=== PATIENT | female | born 1970 | race Caucasian/White ===

== ENCOUNTER 2016-11-05 08:54 | Outpatient (CLI) | payer MEDICAID | END 2016-11-05 08:55 | disposition home or self-care (01) | DX: E88.81 Metabolic syndrome and other insulin resistance (principal); I10 Essential (primary) hypertension; E66.9 Obesity, unspecified; E78.5 Hyperlipidemia, unspecified ==

== ENCOUNTER 2017-03-21 07:17 | Emergency (ER) | payer MEDICAID ==
[2017-03-21] MEDS ORDERED: SODIUM CHLORIDE 0.9% 1,000 ML IV ONE (08:18)
--- NOTE | 2017-03-21 08:18 | ED Physician Documentation ---
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 She has not had fever but she has had nausea and vomiting starting 2 days ago and this time around she has diarrhea as well. Review of Systems Constitutional: reports: Fatigue. denies: Fever Eyes: denies: Decreased vision Ears: reports: Ear pain Nose: reports: Rhinorrhea / runny nose, Congestion Throat: denies: Sore throat Cardiac: denies: Chest pain / pressure, Palpitations Respiratory: reports: Cough. 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 HEENT: None Psych: Anxiety Musculoskeletal: None Derm: None - Past Surgical History Past Surgical History: Yes - Present Medications Home Medications: Ambulatory Orders Medication Instructions Recorded Confirmed Lisinopril 20 mg PO DAILY 05/26/14 03/21/17 Venlafaxine ER [Effexor ER] 7.5 mg PO DAILY 05/26/14 03/21/17 busPIRone [Buspar] 7.5 mg PO DAILY 05/26/14 03/21/17 Lovastatin 20 mg PO DAILY 03/21/17 03/21/17 Sucralfate [Carafate] 1 gm PO ACHS #200 ml 03/21/17 - Allergies Allergies/Adverse Reactions: Allergies Allergy/AdvReac Type Severity Reaction Status Date / Time No Known Drug Allergies Allergy Verified 10/26/16 14:34 - Social History Does the pt smoke?: No Smoking Status: Never smoker Does the pt drink ETOH?: No Does the pt have substance abuse?: No - Immunizations Immunizations are current?: Yes - POLST Patient has POLST: No PD ED PE NORMAL - Vitals Vital signs reviewed: Yes (hypertensive) - General General: Alert and oriented X 3, No acute distress, Well developed/nourished - HEENT HEENT: Atraumatic, PERRL, EOMI, Other (mild inflamation to the left TM) - Neck Neck: Supple, no meningeal sign, No bony TTP - Cardiac Cardiac: RRR, No murmur - Respiratory Respiratory: No respiratory distress, Clear bilaterally - Abdomen Abdomen: Soft, Other (There is left sided abdominal tenderness with pain referrred to the left side and rebound tenderness) - Back Back: No CVA TTP - Derm Derm: Normal color, Warm and dry, No rash - Extremities Extremities: No deformity, No edema - Neuro Neuro: No motor deficit, No sensory deficit - Psych Psych: Normal mood, Normal affect Results - Vitals Vitals: Vital Signs - 24 hr 03/21/17 07:30 Temperature 36.2 C L Heart Rate 79 Respiratory 18 Rate Blood Pressure 143/79 H O2 Saturation 100 Oxygen O2 Source Room air - Labs Labs: Laboratory Tests 03/21/17 03/21/17 03/21/17 08:00 08:30 08:30 WBC 9.3 RBC 4.39 Hgb 13.0 Hct 37.6 MCV 85.8 MCH 29.6 MCHC 34.5 RDW 14.7 Plt Count 160 MPV 8.6 Neut # 5.8 Lymph # 2.5 Ocean # 0.7 Eos # 0.2 Baso # 0.1 Absolute Nucleated RBC 0.00 Nucleated RBCs 0.0 Sodium 138 Potassium 4.3 Chloride 103 Carbon Dioxide 26 Anion Gap 9.0 BUN 15 Creatinine 0.5 Estimated GFR (MDRD) 131 Glucose 116 H Calcium 9.1 Total Bilirubin 0.3 AST 15 ALT 17 Alkaline Phosphatase 52 Total Protein 6.9 Albumin 3.7 Globulin 3.2 Albumin/Globulin Ratio 1.2 Lipase 22 Urine Color YELLOW Urine Clarity CLEAR Urine pH 5.5 Ur Specific Lillie 1.025 Urine Protein NEGATIVE Urine Glucose (UA) NEGATIVE Urine Ketones NEGATIVE Urine Occult Blood NEGATIVE Urine Nitrite NEGATIVE Urine Bilirubin NEGATIVE Urine Urobilinogen 0.2 (NORMAL) Ur Leukocyte Esterase NEGATIVE Ur Microscopic Review NOT INDICATED Urine Culture Comments NOT INDICATED PD MEDICAL DECISION MAKING - ED course Complexity details: reviewed old records, reviewed results, re-evaluated patient , considered differential, d/w patient ED course: 47 y/o female with a history of diverticulitis has developed symptoms similar to prior and on CT has no evidence of diverticulitis. She has normal WBC and tenderness in the LUQ. She improves with a GI cocktail and her pain is assumed to be related to gastritis/pud and we will treat her for this. Departure - Departure Disposition: Home, Self Care Clinical Impression: Gastritis Qualifiers: Gastritis type: unspecified gastritis Chronicity: acute Gastritis bleeding: without bleeding Qualified Code(s): K29.00 - Acute gastritis without bleeding Condition: Stable Instructions: ED PUD Vs Gastritis Follow-Up: Olivia Tillman ARNP [Primary Care Provider] - Prescriptions: Sucralfate [Carafate] 1 gm PO ACHS #200 ml
[2017-03-21 08:25] LABS: BILIRUBIN,URINE NEGATIVE (NEGATIVE); PH,URINE 5.5 PH (5.0-7.5)
[2017-03-21 08:29] LABS: UA CHARGE (STRIP ONLY) YES; UR CULTURE IF IND NOT INDICATED
[2017-03-21 08:40] LABS: BASOPHILS # (AUTO) 0.1 10^3/uL (0.0-0.1); EOSINOPHILS # (AUTO) 0.2 10^3/uL (0.0-0.7); EOSINOPHILS % (AUTO) 1.8 %; HCT - HEMATOCRIT 37.6 % (37.0-47.0); LYMPHOCYTES # (AUTO) 2.5 10^3/uL (1.5-3.5); LYMPHOCYTES % (AUTO) 26.6 %; MEAN CORPUSCULAR HEMOGLOBIN 29.6 pg (27.0-31.0); MEAN CORPUSCULAR HGB CONC 34.5 g/dL (32.0-36.0); MEAN CORPUSCULAR VOLUME 85.8 fL (81.0-99.0); MEAN PLATELET VOLUME 8.6 fL (7.9-10.8); MONOCYTES # (AUTO) 0.7 10^3/uL (0.0-1.0); MONOCYTES % (AUTO) 7.9 %; NEUTROPHILS # (AUTO) 5.8 10^3/uL (1.5-6.6); NEUTROPHILS % (AUTO) 62.7 %; RED BLOOD COUNT 4.39 10^6/uL (4.20-5.40); RED CELL DISTRIBUTION WIDTH 14.7 % (12.0-15.0); UNCORRECTED WHITE BLOOD COUNT 9.3 x10^3/uL; WHITE BLOOD COUNT 9.3 x10^3/uL (4.8-10.8)
[2017-03-21 08:53] LABS: ALBUMIN/GLOBULIN RATIO 1.2 (1.0-2.2); BILIRUBIN,TOTAL 0.3 mg/dL (0.2-1.0); CALCIUM 9.1 mg/dL (8.5-10.3); CREATININE 0.5 mg/dL (0.4-1.0); POTASSIUM 4.3 mmol/L (3.5-5.0); TOTAL PROTEIN 6.9 g/dL (6.7-8.2)
--- NOTE | 2017-03-21 08:55 | CT Preliminary Report ---
Exam: CT Abdomen/Pelvis W/O IMPRESSION: 1. No visible calculi. No acute pathology. 2. Colonic diverticula without evidence of diverticulitis. [facility] SITE ID: [id number]
[2017-03-21] MEDS ORDERED: ONDANSETRON 4 MG/2 ML VIAL IVP STA (09:01)
--- NOTE | 2017-03-21 09:01 | CT Report ---
EXAM: CT ABDOMEN AND PELVIS (CT KUB) EXAM DATE: 03/21/2017 08:44 AM. CLINICAL HISTORY: Left lower quadrant pain, history of diverticulitis. COMPARISONS: Prior CT November 2015. TECHNIQUE: Routine axial helical CT imaging was performed through the abdomen and pelvis without IV c ontrast. Reconstructions: Coronal and sagittal. In accordance with CT protocol optimization, one or more of the following dose reduction techniques w ere utilized for this exam: automated exposure control, adjustment of mA and/or KV based on patient s ize, or use of iterative reconstructive technique. FINDINGS: Lung Bases: Unremarkable. Right Kidney/Ureter: No stones, hydronephrosis, or hydroureter. No perinephric fat stranding. Left Kidney/Ureter: No stones, hydronephrosis, or hydroureter. No perinephric fat stranding. Other Solid Organs: Noncontrast images of the solid organs are grossly unremarkable. Gallbladder/Bile Ducts: Unremarkable. Peritoneal Cavity: There are numerous colonic diverticula. The large and small bowel appear otherwise unremarkable. Pelvic Organs: No bladder stones or wall thickening. Noncontrast images of the visualized pelvic orga ns are unremarkable. Vasculature: Unremarkable. Other: None. IMPRESSION: 1. No visible calculi. No acute pathology. 2. Colonic diverticula without evidence of diverticulitis. [facility] Referring Provider Line: [phone] SITE ID: [id number]
[2017-03-21] MEDS ORDERED: MAG HYDROX/AL HYDROX/SIMETH 30 ML UDC PO STA ×2 (09:02→09:35)
[2017-03-21] MEDS ORDERED: LIDOCAINE VISCOUS 2% 15 ML UDC MM STA ×2 (09:02→09:34)
[2017-03-21] MEDS ORDERED: ONDANSETRON 4 MG/2 ML VIAL ONE (09:03)
[2017-03-21] MEDS ORDERED: LIDOCAINE VISCOUS 2% 15 ML UDC MM ONE ×2 (09:06→09:37)
[2017-03-21] MEDS ORDERED: MAG HYDROX/AL HYDROX/SIMETH 30 ML UDC ONE ×2 (09:06→09:37)
[2017-03-21 10:18] VITALS: BP 144/80
== END 2017-03-21 10:20 | disposition home or self-care (01) ==
LOC: ED 07:17
DX: K29.00 Acute gastritis without bleeding (principal); I10 Essential (primary) hypertension; Z87.19 Personal history of other diseases of the digestive system
CPT/HCPCS: 36415; 74176; 80053; 81003; 83690; 85025; 87040; 96374; 99283; 99284; A9270; 81001; 87086

== ENCOUNTER 2018-04-23 08:13 | Outpatient (CLI) | payer MEDICAID ==
[2018-04-23 11:54] LABS: BASOPHILS # (AUTO) 0.1 10^3/uL (0.0-0.1); BASOPHILS % (AUTO) 1.1 %; EOSINOPHILS # (AUTO) 0.3 10^3/uL (0.0-0.7); EOSINOPHILS % (AUTO) 4.7 %; HGB - HEMOGLOBIN 11.9 g/dL (12.0-16.0); LYMPHOCYTES # (AUTO) 1.7 10^3/uL (1.5-3.5); LYMPHOCYTES % (AUTO) 26.9 %; MEAN CORPUSCULAR HEMOGLOBIN 28.8 pg (27.0-31.0); MEAN CORPUSCULAR HGB CONC 33.2 g/dL (32.0-36.0); MEAN CORPUSCULAR VOLUME 86.6 fL (81.0-99.0); MEAN PLATELET VOLUME 8.5 fL (7.9-10.8); MONOCYTES # (AUTO) 0.4 10^3/uL (0.0-1.0); MONOCYTES % (AUTO) 5.8 %; NEUTROPHILS # (AUTO) 3.9 10^3/uL (1.5-6.6); NEUTROPHILS % (AUTO) 61.5 %; PLT - PLATELET COUNT 196 10^3/uL (130-450); RED BLOOD COUNT 4.13 10^6/uL (4.20-5.40); RED CELL DISTRIBUTION WIDTH 14.8 % (12.0-15.0); WHITE BLOOD COUNT 6.3 x10^3/uL (4.8-10.8)
[2018-04-23 12:04] LABS: HB2 TOTAL 12.5 g/dL; HEMOGLOBIN A1C 0.53 g/dL
[2018-04-23 12:10] LABS: ALBUMIN 3.2 g/dL (3.2-5.5); ALBUMIN/GLOBULIN RATIO 0.9 (1.0-2.2); ALKALINE PHOSPHATASE 43 IU/L (42-121); ALT ALANINE AMINOTRANSFERASE 19 IU/L (10-60); AST ASPARTATE AMINOTRANSFERASE 21 IU/L (10-42); BILIRUBIN,TOTAL 0.5 mg/dL (0.2-1.0); BUN - BLOOD UREA NITROGEN 15 mg/dL (6-20); CALCIUM 8.4 mg/dL (8.5-10.3); CARBON DIOXIDE - CO2 27 mmol/L (21-32); CHLORIDE 103 mmol/L (101-111); CHOL/HDL RATIO 6.1 (<4.4); CHOLESTEROL 276 mg/dL; CREATININE 0.7 mg/dL (0.4-1.0); GFR - MDRD 89 (>89); GLUCOSE 129 mg/dL (70-100); HDL CHOLESTEROL 45 mg/dL; SODIUM 137 mmol/L (135-145); TOTAL PROTEIN 6.7 g/dL (6.7-8.2)
[2018-04-23 12:16] LABS: CRP - C-REACTIVE PROTEIN < 1.0 mg/dL (0-1.0)
[2018-04-23 12:35] LABS: LDL CHOLESTEROL,DIRECT 127 mg/dL; LDLD/HDL RATIO 2.8 (<4.4)
[2018-04-23 13:31] LABS: RHEUMATOID FACTOR NEGATIVE (Negative)
[2018-04-25 13:58] LABS: ANA SCREEN NEGATIVE (NEGATIVE)
== END 2018-04-23 08:14 | disposition home or self-care (01) ==
LOC: LAB.F 08:13
PROVIDERS: ATTEND Nurse Practitioner Family
DX: I10 Essential (primary) hypertension (principal); E78.5 Hyperlipidemia, unspecified; R73.01 Impaired fasting glucose; M25.50 Pain in unspecified joint
CPT/HCPCS: 36415; 80053; 80061; 83036; 83721; 84443; 85025; 85651; 86038; 86140; 86430

== ENCOUNTER 2018-12-01 07:39 | Emergency (ER) | payer MEDICAID ==
--- NOTE | 2018-12-01 07:49 | ED Physician Documentation ---
PD HPI LOWER EXT INJURY - Stated complaint Stated Complaint: LEFT KNEE INJ - Chief complaint Chief Complaint: Ext Problem - History obtained from History obtained from: Patient - History of Present Illness PD HPI LOW EXT INJURY LOCATION: Left, Knee Type of injury: Fall, Twist (fell on ice, with twist of left knee and fell to it. It ended to side and under her (valgus stress). She felt a pop in the knee. 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) Timing - details: Abrupt onset Worsened by: Moving (all ROM of the knee and also with just standing on knee, feels pain and says it was clicking.), Palpating (back of the knee) Associated symptoms: No: Weakness, Numbness, Swelling Contributing factors: No: Prior ortho surgery Similar symptoms before: Has not had sx before Recently seen: Not recently seen Review of Systems Constitutional: denies: Fever, Chills, Myalgias Nose: denies: Rhinorrhea / runny nose, Congestion Throat: denies: Sore throat Respiratory: denies: Cough Skin: denies: Abrasion (s), Laceration (s) Musculoskeletal: denies: Back pain Neurologic: denies: Focal weakness, Numbness, Confused, Headache PD PAST MEDICAL HISTORY - Past Medical History Cardiovascular: Hypertension Respiratory: None Endocrine/Autoimmune: None GI: None, Diverticulitis 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 HEENT: None Psych: Anxiety Musculoskeletal: None Derm: None - Past Surgical History Past Surgical History: Yes - Present Medications Home Medications: Ambulatory Orders Medication Instructions Recorded Confirmed Lisinopril 20 mg PO DAILY 05/26/14 03/21/17 Venlafaxine ER [Effexor ER] 7.5 mg PO DAILY 05/26/14 03/21/17 busPIRone [Buspar] 7.5 mg PO DAILY 05/26/14 03/21/17 Lovastatin 20 mg PO DAILY 03/21/17 03/21/17 Sucralfate [Carafate] 1 gm PO ACHS #200 ml 03/21/17 - Allergies Allergies/Adverse Reactions: Allergies Allergy/AdvReac Type Severity Reaction Status Date / Time No Known Drug Allergies Allergy Verified 12/01/18 07:46 - Social History Does the pt smoke?: No Smoking Status: Never smoker Does the pt drink ETOH?: No Does the pt have substance abuse?: No - Immunizations Immunizations are current?: Yes - POLST Patient has POLST: No PD ED PE NORMAL - Vitals Vital signs reviewed: Yes - General General: Alert and oriented X 3, No acute distress, Well developed/nourished - Back Back: No spinal TTP - Derm Derm: Normal color, Warm and dry - Extremities Extremities: Other (right knee okay. left knee with tenderness all around. No effusion. Most tender medial joint line and popliteal. No gross laxity with ligament stress, but limited by pain with valgus. No pain nor laxity with Lachmann test. Pain with APley like pressure. ) - Neuro Neuro: Alert and oriented X 3, No motor deficit, No sensory deficit, Normal speech Results - Vitals Vitals: Vital Signs - 24 hr 12/01/18 12/01/18 07:44 09:16 Temperature 36.3 C L 36.4 C L Heart Rate 98 90 Respiratory 18 18 Rate Blood Pressure 159/94 H 140/88 H O2 Saturation 96 96 Oxygen O2 Source Room air - Rads (name of study) knee xray left Radiology: Prelim report reviewed, EMP read contemporaneously, See rad report PD MEDICAL DECISION MAKING - ED course Complexity details: considered differential (seems like MCL and likely some meniscal injury.), d/w patient Departure - Departure Disposition: 01 Home, Self Care Clinical Impression: Left knee sprain Qualifiers: Encounter type: initial encounter Involved ligament of knee: medial collateral ligament Qualified Code(s): S83.412A - Sprain of medial collateral ligament of left knee, initial encounter Condition: Stable Record reviewed to determine appropriate education?: Yes Instructions: ED Meniscal Injury Knee Poss Follow-Up: Olivia Tillman ARNP [Primary Care Provider] - [facility] [Provider Group] Comments: Use a knee brace when up and around. Add crutches for partial weightbearing as needed for comfort. It is okay to be putting some weight onto your knee. You can have the knee brace off when rested so it is not as stiff. You may develop some swelling more of the knee through the day. Naproxen or ibuprofen can be used for inflammation and pain. Add Tylenol if needed. It seems likely that you have a strain of the MCL ligament and also sounds like possibly some cartilage looseness. Follow-up with your primary care or more likely orthopedics in about a week or so, call for an appointment. See how much it improves over 1-2 weeks which is the knee brace. Hopefully will be all better at that point. Discharge Date/Time: 12/01/18 09:16
--- NOTE | 2018-12-01 08:50 | XRAY Report ---
Reason: fall and twist on ice this morning Procedure Date: 12/01/2018 Accession Number: [id number] / [id number] Procedure: XR - Knee 4 View LT CPT Code: FULL RESULT: EXAM: LEFT KNEE RADIOGRAPHY EXAM DATE: 12/01/2018 08:41 AM. CLINICAL HISTORY: Fall and twist on ice this morning. COMPARISON: None. TECHNIQUE: 4 views. FINDINGS: Bones: Normal. No fractures or bone lesions. Joints: Small suprapatellar effusion. No dislocation or subluxation. Soft Tissues: Normal. No soft tissue swelling. IMPRESSION: Small suprapatellar effusion. No fracture appreciated. [facility]
[2018-12-01 09:20] VITALS: BP 140/88
== END 2018-12-01 09:16 | disposition home or self-care (01) ==
LOC: ED 07:39
DX: S83.412A Sprain of medial collateral ligament of left knee, initial encounter (principal); W00.0XXA Fall on same level due to ice and snow, initial encounter; Y93.01 Activity, walking, marching and hiking; Y92.481 Parking lot as the place of occurrence of the external cause; Y99.0 Civilian activity done for income or pay; I10 Essential (primary) hypertension
CPT/HCPCS: 99283

== ENCOUNTER 2018-12-15 07:11 | Outpatient (CLI) | payer MEDICAID ==
--- NOTE | 2018-12-15 13:44 | MRI Report ---
Reason: KNEE JOINT PAIN,LEFT Procedure Date: 12/15/2018 Accession Number: [id number] / [id number] Procedure: MRI - Knee LT W/O CPT Code: FULL RESULT: EXAM: LEFT KNEE MRI WITHOUT CONTRAST EXAM DATE: 12/15/2018 07:57 AM. CLINICAL HISTORY: Left knee pain after slipping on ice. COMPARISON: KNEE 4 VIEW LT 12/01/2018 8:25 AM. TECHNIQUE: Multiplanar, multisequence T1-weighted and fluid-sensitive sequences of the knee without contrast. Other: None. FINDINGS: Bones: No fractures or subluxations. No marrow edema. No bone lesions. Articular Cartilage: Small partial-thickness articular cartilage fissure at the lateral patellar facet. Medial Meniscus: Radial tear at the junction of the anterior horn and body (sagittal image 20 and axial image 15). Flap tear at the inner third of the posterior horn. A small portion of the posterior horn is displaced laterally within the posterior lateral aspect of the medial joint compartment. Lateral Meniscus: The lateral meniscus is intact. Cruciate Ligaments: The anterior and posterior cruciate ligaments are intact. Collateral Ligaments: The medial collateral and lateral collateral ligamentous structures are intact. Tendons: The quadriceps, patellar, semimembranosus, and popliteus tendons are unremarkable. Musculature: No edema or fatty atrophy. Other: Small joint effusion. Tiny popliteal cyst. No loose bodies. The medial and lateral retinacula are intact. The subcutaneous tissues and fat pads are unremarkable. IMPRESSION: 1. Radial tear at the junction of the anterior horn and body of the medial meniscus and a flap tear at the posterior horn medial meniscus. 2. Small partial-thickness articular cartilage fissure at the lateral patellar facet. 3. Small joint effusion and tiny popliteal cyst. [facility] MUSCULOSKELETAL RADIOLOGY SECTION
== END 2018-12-15 07:12 | disposition home or self-care (01) ==
LOC: DI 07:11
PROVIDERS: ATTEND Orthopaedic Surgery Sports Medicine
DX: S83.242A Other tear of medial meniscus, current injury, left knee, initial encounter (principal); M23.92 Unspecified internal derangement of left knee; M25.462 Effusion, left knee; M71.22 Synovial cyst of popliteal space [Baker], left knee

== ENCOUNTER 2018-12-22 09:40 | Outpatient (CLI) | payer MEDICAID ==
[2018-12-22 17:57] LABS: BASOPHILS # (AUTO) 0.1 10^3/uL (0.0-0.1); BASOPHILS % (AUTO) 1.2 %; EOSINOPHILS # (AUTO) 0.1 10^3/uL (0.0-0.7); HGB - HEMOGLOBIN 11.9 g/dL (12.0-16.0); LYMPHOCYTES # (AUTO) 1.6 10^3/uL (1.5-3.5); LYMPHOCYTES % (AUTO) 26.6 %; MEAN CORPUSCULAR HEMOGLOBIN 26.2 pg (27.0-31.0); MEAN CORPUSCULAR HGB CONC 31.7 g/dL (32.0-36.0); MEAN CORPUSCULAR VOLUME 82.4 fL (81.0-99.0); MEAN PLATELET VOLUME 8.2 fL (7.9-10.8); MONOCYTES # (AUTO) 0.4 10^3/uL (0.0-1.0); MONOCYTES % (AUTO) 6.9 %; NEUTROPHILS # (AUTO) 3.8 10^3/uL (1.5-6.6); NEUTROPHILS % (AUTO) 63.3 %; PLT - PLATELET COUNT 189 10^3/uL (130-450); RED BLOOD COUNT 4.56 10^6/uL (4.20-5.40); RED CELL DISTRIBUTION WIDTH 17.2 % (12.0-15.0)
[2018-12-22 18:07] LABS: HB2 TOTAL 12.7 g/dL; HEMOGLOBIN A1C 0.64 g/dL; HEMOGLOBIN A1C % 6.8 % (4.6-6.2)
[2018-12-22 18:15] LABS: ALBUMIN 3.6 g/dL (3.2-5.5); ALBUMIN/GLOBULIN RATIO 1.1 (1.0-2.2); ALKALINE PHOSPHATASE 41 IU/L (42-121); ALT ALANINE AMINOTRANSFERASE 19 IU/L (10-60); AST ASPARTATE AMINOTRANSFERASE 23 IU/L (10-42); BILIRUBIN,TOTAL 0.5 mg/dL (0.2-1.0); BUN - BLOOD UREA NITROGEN 13 mg/dL (6-20); CARBON DIOXIDE - CO2 23 mmol/L (21-32); CHLORIDE 103 mmol/L (101-111); CHOL/HDL RATIO 5.9 (<4.4); CHOLESTEROL 288 mg/dL; CREATININE 0.5 mg/dL (0.4-1.0); GFR - MDRD 131 (>89); GLUCOSE 135 mg/dL (70-100); HDL CHOLESTEROL 49 mg/dL; LDL CHOLESTEROL,CALCULATED 161 mg/dL; LDL/HDL RATIO 3.3 (<4.4); SODIUM 137 mmol/L (135-145); TOTAL PROTEIN 6.9 g/dL (6.7-8.2); VLDL CHOLESTEROL 78 mg/dL
== END 2018-12-22 09:41 | disposition home or self-care (01) ==
LOC: LAB.F 09:40
PROVIDERS: ATTEND Nurse Practitioner Family
DX: E88.81 Metabolic syndrome and other insulin resistance (principal); E78.5 Hyperlipidemia, unspecified; R73.01 Impaired fasting glucose; I10 Essential (primary) hypertension; F32.9 Major depressive disorder, single episode, unspecified
CPT/HCPCS: 36415; 80053; 80061; 83036; 83721; 84443; 85025

== ENCOUNTER 2020-02-07 11:00 | Outpatient (CLI) | payer MEDICAID ==
[2020-02-07 11:22] LABS: BASOPHILS % (AUTO) 0.5 %; EOSINOPHILS # (AUTO) 0.1 10^3/uL (0.0-0.7); EOSINOPHILS % (AUTO) 1.3 %; HGB - HEMOGLOBIN 13.6 g/dL (12.0-16.0); LYMPHOCYTES % (AUTO) 25.3 %; MEAN CORPUSCULAR HEMOGLOBIN 28.2 pg (27.0-31.0); MEAN CORPUSCULAR HGB CONC 31.9 g/dL (32.0-36.0); MEAN CORPUSCULAR VOLUME 88.6 fL (81.0-99.0); MEAN PLATELET VOLUME 9.9 fL (7.9-10.8); MONOCYTES # (AUTO) 0.5 10^3/uL (0.0-1.0); MONOCYTES % (AUTO) 6.2 %; NEUTROPHILS # (AUTO) 5.3 10^3/uL (1.5-6.6); NEUTROPHILS % (AUTO) 66.4 %; PLT - PLATELET COUNT 205 10^3/uL (130-450); RED BLOOD COUNT 4.82 10^6/uL (4.20-5.40); RED CELL DISTRIBUTION WIDTH 14.8 % (12.0-15.0); WHITE BLOOD COUNT 7.9 x10^3/uL (4.8-10.8)
[2020-02-07 11:37] LABS: HB2 TOTAL 14.1 g/dL; HEMOGLOBIN A1C 0.63 g/dL; HEMOGLOBIN A1C % 6.2 % (4.6-6.2)
[2020-02-07 11:39] LABS: BUN - BLOOD UREA NITROGEN 12 mg/dL (6-20); CALCIUM 8.8 mg/dL (8.5-10.3); CARBON DIOXIDE - CO2 24 mmol/L (21-32); CHLORIDE 99 mmol/L (101-111); CHOL/HDL RATIO 5.8 (<4.4); CHOLESTEROL 233 mg/dL; CREATININE 0.6 mg/dL (0.4-1.0); GLUCOSE 122 mg/dL (70-100); HDL CHOLESTEROL 40 mg/dL; LDL CHOLESTEROL,CALCULATED 136 mg/dL; LDL/HDL RATIO 3.4 (<4.4); SODIUM 132 mmol/L (135-145); VLDL CHOLESTEROL 57 mg/dL
[2020-02-07 11:48] LABS: CREATININE,URINE 226.3 mg/dL; MICROALBUM/CREATININE RATIO,UR 13.7 ug/mg (<30.0); MICROALBUMIN,URINE 3.1 mg/dL (0-300.0)
== END 2020-02-07 11:01 | disposition home or self-care (01) ==
LOC: LAB 11:00
PROVIDERS: ATTEND Physician Assistant
DX: E11.9 Type 2 diabetes mellitus without complications (principal); I10 Essential (primary) hypertension; E66.9 Obesity, unspecified; Z79.899 Other long term (current) drug therapy
CPT/HCPCS: 36415; 80048; 80061; 82043; 82570; 83036; 83721; 85025

== ENCOUNTER 2021-01-30 10:59 | Outpatient (CLI) | payer MEDICAID ==
[2021-01-30 14:55] LABS: BASOPHILS # (AUTO) 0.1 10^3/uL (0.0-0.1); BASOPHILS % (AUTO) 0.9 %; EOSINOPHILS # (AUTO) 0.1 10^3/uL (0.0-0.7); EOSINOPHILS % (AUTO) 1.7 %; HCT - HEMATOCRIT 41.4 % (37.0-47.0); HGB - HEMOGLOBIN 13.5 g/dL (12.0-16.0); LYMPHOCYTES # (AUTO) 2.1 10^3/uL (1.5-3.5); LYMPHOCYTES % (AUTO) 32.4 %; MEAN CORPUSCULAR HEMOGLOBIN 29.4 pg (27.0-31.0); MEAN CORPUSCULAR HGB CONC 32.6 g/dL (32.0-36.0); MEAN CORPUSCULAR VOLUME 90.2 fL (81.0-99.0); MEAN PLATELET VOLUME 10.4 fL (7.9-10.8); MONOCYTES # (AUTO) 0.4 10^3/uL (0.0-1.0); MONOCYTES % (AUTO) 6.7 %; NEUTROPHILS # (AUTO) 3.7 10^3/uL (1.5-6.6); PLT - PLATELET COUNT 190 10^3/uL (130-450); RED BLOOD COUNT 4.59 10^6/uL (4.20-5.40); RED CELL DISTRIBUTION WIDTH 14.6 % (12.0-15.0); WHITE BLOOD COUNT 6.5 x10^3/uL (4.8-10.8)
[2021-01-30 15:52] LABS: ALBUMIN 3.9 g/dL (3.2-5.5); ALBUMIN/GLOBULIN RATIO 1.3 (1.0-2.2); ALKALINE PHOSPHATASE 54 IU/L (42-121); ALT ALANINE AMINOTRANSFERASE 20 IU/L (10-60); AST ASPARTATE AMINOTRANSFERASE 17 IU/L (10-42); BILIRUBIN,TOTAL 0.6 mg/dL (0.2-1.0); BUN - BLOOD UREA NITROGEN 14 mg/dL (6-20); CALCIUM 9.3 mg/dL (8.5-10.3); CARBON DIOXIDE - CO2 26 mmol/L (21-32); CHLORIDE 104 mmol/L (101-111); CHOLESTEROL 308 mg/dL; CREATININE 0.7 mg/dL (0.4-1.0); GFR - MDRD 88 (>89); GLUCOSE 141 mg/dL (70-100); HDL CHOLESTEROL 51 mg/dL; LDL CHOLESTEROL,CALCULATED 195 mg/dL; LDL/HDL RATIO 3.8 (<4.4); POTASSIUM 4.5 mmol/L (3.5-5.0); SODIUM 139 mmol/L (135-145); TOTAL PROTEIN 6.9 g/dL (6.7-8.2); TRIGLYCERIDES 312 mg/dL; VLDL CHOLESTEROL 62 mg/dL
[2021-01-30 15:53] LABS: THYROID STIMULATING HORMONE 1.75 uIU/mL (0.34-5.60)
[2021-01-30 16:21] LABS: FOLLICLE STIMULATING HORMONE 54.1 mIU/mL
[2021-01-30 16:22] LABS: LUTEINIZING HORMONE 40.8 mIU/mL
[2021-01-30 19:40] LABS: ESTIMATED AVERAGE GLUCOSE 143 mg/dL (70-100); HEMOGLOBIN A1c% 6.6 % (4.27-6.07)
== END 2021-01-30 11:00 | disposition home or self-care (01) ==
LOC: LAB.S 10:59
PROVIDERS: ATTEND Obstetrics & Gynecology
DX: F41.9 Anxiety disorder, unspecified (principal); E11.9 Type 2 diabetes mellitus without complications; E66.9 Obesity, unspecified; E88.81 Metabolic syndrome and other insulin resistance; I10 Essential (primary) hypertension; E78.5 Hyperlipidemia, unspecified; Z79.890 Hormone replacement therapy
CPT/HCPCS: 36415; 80053; 80061; 82670; 83001; 83002; 83036; 83721; 84144; 84403; 84443; 85025

== ENCOUNTER 2021-12-18 06:32 | Outpatient (CLI) | payer MEDICAID ==
--- NOTE | 2021-12-18 15:48 | Ultrasound Report ---
PROCEDURE: Pelvic w/Transvaginal INDICATIONS: POSTMENOPAUSAL BLEEDING TECHNIQUE: Real-time scanning was performed of the pelvic organs, with image documentation. Additional endovagi nal scanning was necessary due to incomplete visualization of the adnexal and endometrial structures by transabdominal scanning. COMPARISON: None. FINDINGS: No pathologic free abdominal or pelvic fluid. Uterus: Uterus is normal in size at 7.6 x 3.9 x 4.3 cm. Volume measures 71.3 cc. The endometrium vonnie sures 3.6 mm in combined thickness. Within the right anterior region of the uterus or is a 1.3 x 1.3 x 1.3 cm focus of heterogeneous echogenicity. Ovaries: Right ovary measures 1.3 x 1.1 x 2.0 cm, volume 1.5 cc. Left ovary measures 1.9 x 1.3 x 1.6 cm, volume 2.0 cc. There are unremarkable. IMPRESSION: 1.3 cm focus of echogenicity within the uterus suggestive of small fibroid. Reviewed by: Anita Cotter MD on 12/18/2021 3:47 PM PST Approved by: Anita Cotter MD on 12/18/2021 3:47 PM PST Station ID: [id number]
== END 2021-12-18 06:33 | disposition home or self-care (01) ==
LOC: DI 06:32
PROVIDERS: ATTEND Obstetrics & Gynecology
DX: N95.0 Postmenopausal bleeding (principal)

== ENCOUNTER 2022-01-24 07:01 | Day surgery (SDC) | payer MEDICAID ==
[~2022-01-24 07:01] MED LIST: LACTATED RINGERS 1,000 ML IV ONE
[2022-01-24] MEDS ORDERED: LACTATED RINGERS 1,000 ML IV ONE (09:36)
== END 2022-01-24 07:02 | disposition home or self-care (01) ==
LOC: SDS 07:01
PROVIDERS: ATTEND Obstetrics & Gynecology
DX: Z53.9 Procedure and treatment not carried out, unspecified reason (principal)

== ENCOUNTER 2022-02-13 08:00 | Outpatient (CLI) | payer MEDICAID ==
[2022-02-13 20:11] LABS: BASOPHILS # (AUTO) 0.1 10^3/uL (0.0-0.1); BASOPHILS % (AUTO) 0.8 %; EOSINOPHILS # (AUTO) 0.1 10^3/uL (0.0-0.7); HCT - HEMATOCRIT 42.8 % (37.0-47.0); HGB - HEMOGLOBIN 13.9 g/dL (12.0-16.0); LYMPHOCYTES # (AUTO) 2.6 10^3/uL (1.5-3.5); MEAN CORPUSCULAR HEMOGLOBIN 29.6 pg (27.0-31.0); MEAN CORPUSCULAR HGB CONC 32.5 g/dL (32.0-36.0); MEAN CORPUSCULAR VOLUME 91.1 fL (81.0-99.0); MONOCYTES # (AUTO) 0.5 10^3/uL (0.0-1.0); MONOCYTES % (AUTO) 7.3 %; NEUTROPHILS # (AUTO) 3.3 10^3/uL (1.5-6.6); NEUTROPHILS % (AUTO) 49.6 %; PLT - PLATELET COUNT 183 10^3/uL (130-450); RED CELL DISTRIBUTION WIDTH 14.1 % (12.0-15.0); WHITE BLOOD COUNT 6.6 x10^3/uL (4.8-10.8)
[2022-02-13 20:26] LABS: ALBUMIN 4.1 g/dL (3.2-5.5); ALBUMIN/GLOBULIN RATIO 1.3 (1.0-2.2); ALKALINE PHOSPHATASE 46 IU/L (42-121); ALT ALANINE AMINOTRANSFERASE 26 IU/L (10-60); AST ASPARTATE AMINOTRANSFERASE 22 IU/L (10-42); BILIRUBIN,TOTAL 0.6 mg/dL (0.2-1.0); BUN - BLOOD UREA NITROGEN 15 mg/dL (6-20); CALCIUM 9.2 mg/dL (8.5-10.3); CARBON DIOXIDE - CO2 31 mmol/L (21-32); CHLORIDE 98 mmol/L (101-111); CHOL/HDL RATIO 9.8 (<4.4); CHOLESTEROL 420 mg/dL; CREATININE 0.6 mg/dL (0.4-1.0); GFR - MDRD 104 (>89); GLUCOSE 107 mg/dL (70-100); HDL CHOLESTEROL 43 mg/dL; POTASSIUM 3.8 mmol/L (3.5-5.0); SODIUM 138 mmol/L (135-145); TOTAL PROTEIN 7.3 g/dL (6.7-8.2); TRIGLYCERIDES 830 mg/dL
[2022-02-13 21:20] LABS: LDL CHOLESTEROL,DIRECT 137 mg/dL; LDLD/HDL RATIO 3.2 (<4.4)
== END 2022-02-13 23:59 | disposition home or self-care (01) ==
LOC: LAB.S 08:00
PROVIDERS: ATTEND Physician Assistant Medical
DX: Z51.81 Encounter for therapeutic drug level monitoring (principal); E11.9 Type 2 diabetes mellitus without complications; Z79.899 Other long term (current) drug therapy; E78.5 Hyperlipidemia, unspecified
CPT/HCPCS: 36415; 80053; 80061; 81599; 83036; 83721; 85025

== ENCOUNTER 2023-03-17 23:48 | Emergency (ER) | payer MEDICAID ==
[2023-03-18 01:28] LABS: BASOPHILS # (AUTO) 0.1 10^3/uL (0.0-0.1); BASOPHILS % (AUTO) 0.8 %; EOSINOPHILS # (AUTO) 0.2 10^3/uL (0.0-0.7); EOSINOPHILS % (AUTO) 2.4 %; HGB - HEMOGLOBIN 13.3 g/dL (12.0-16.0); LYMPHOCYTES % (AUTO) 29.6 %; MEAN CORPUSCULAR HEMOGLOBIN 29.3 pg (27.0-31.0); MEAN CORPUSCULAR HGB CONC 32.4 g/dL (32.0-36.0); MEAN CORPUSCULAR VOLUME 90.3 fL (81.0-99.0); MONOCYTES # (AUTO) 0.6 10^3/uL (0.0-1.0); MONOCYTES % (AUTO) 5.6 %; NEUTROPHILS # (AUTO) 6.2 10^3/uL (1.5-6.6); NEUTROPHILS % (AUTO) 61.2 %; PLT - PLATELET COUNT 238 10^3/uL (130-450); RED BLOOD COUNT 4.54 10^6/uL (4.20-5.40); RED CELL DISTRIBUTION WIDTH 14.6 % (12.0-15.0); WHITE BLOOD COUNT 10.2 x10^3/uL (4.8-10.8)
[2023-03-18 01:41] LABS: ALBUMIN/GLOBULIN RATIO 1.1 (1.0-2.2); BILIRUBIN,TOTAL 0.5 mg/dL (0.2-1.0); CALCIUM 9.6 mg/dL (8.5-10.3); CREATININE 0.8 mg/dL (0.4-1.0); POTASSIUM 3.3 mmol/L (3.5-5.0); TOTAL PROTEIN 7.7 g/dL (6.7-8.2)
[2023-03-18] MEDS ORDERED: iohexoL-300 100 ML VIAL ONE (01:55)
[2023-03-18] MEDS ORDERED: iohexoL-300 100 ML VIAL IVP ONE (02:39)
--- NOTE | 2023-03-18 03:32 | ED Physician Documentation ---
History of Present Illness - Stated complaint Stated Complaint: N/RECTAL BLEEDING - Chief complaint Chief Complaint: General - History obtained from History obtained from: Patient - Additonal information Additional information: The patient comes to the emergency department chief complaint of bloody diarrhea that started this evening. She states she had been feeling okay throughout the day but began to have lower abdominal cramps and suddenly felt the strong urge to have a bowel movement this evening. She states that she thought she was going to have diarrhea but when she looked in the toilet, she noticed bright red blood that was spread throughout the water. She immediately had another strong urge to defecate and had more bloody output. The patient states that after she got here to the emergency department she had 2 more episodes of the same thing. The patient states she has never had any GI bleeding before. She denies any anticoagulation. The patient has never had a colonoscopy. She denies any difficulty with defecation otherwise. No other complaints at this time. 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 HEENT: None Psych: Anxiety Musculoskeletal: None Derm: None - Past Surgical History Past Surgical History: Yes - Present Medications Home Medications: Ambulatory Orders Medication Instructions Recorded Confirmed Lisinopril 20 mg PO DAILY 05/26/14 03/21/17 Venlafaxine ER [Effexor ER] 7.5 mg PO DAILY 05/26/14 03/21/17 busPIRone [Buspar] 7.5 mg PO DAILY 05/26/14 03/21/17 Lovastatin 20 mg PO DAILY 03/21/17 03/21/17 Sucralfate [Carafate] 1 gm PO ACHS #200 ml 03/21/17 - Allergies Allergies/Adverse Reactions: Allergies Allergy/AdvReac Type Severity Reaction Status Date / Time No Known Drug Allergies Allergy Verified 03/18/23 00:00 - Social History Does the pt smoke?: No Smoking Status: Never smoker Does the pt drink ETOH?: No Does the pt have substance abuse?: No - Immunizations Immunizations are current?: Yes - POLST Patient has POLST: No PD ED PE NORMAL - Vitals Vital signs reviewed: Yes - General General: Alert and oriented X 3, No acute distress, Well developed/nourished - HEENT HEENT: Atraumatic, PERRL, EOMI, Moist mucous membranes - Neck Neck: Supple, no meningeal sign - Cardiac Cardiac: RRR, No murmur - Respiratory Respiratory: No respiratory distress, Clear bilaterally - Abdomen Abdomen: Soft, Non tender, Non distended - Derm Derm: Normal color, Warm and dry, No rash - Extremities Extremities: No deformity, No edema - Neuro Neuro: Alert and oriented X 3 - Psych Psych: Normal mood, Normal affect Results - Vitals Vitals: Vital Signs - 24 hr 03/17/23 23:53 Temperature 35.5 C L Heart Rate 118 H Respiratory 19 Rate Blood Pressure 151/96 H O2 Saturation 100 Oxygen O2 Source Room air - Labs Labs: Laboratory Tests 03/18/23 03/18/23 03/18/23 01:19 01:19 01:19 WBC 10.2 RBC 4.54 Hgb 13.3 Hct 41.0 MCV 90.3 MCH 29.3 MCHC 32.4 RDW 14.6 Plt Count 238 MPV 10.0 Neut # (Auto) 6.2 Lymph # (Auto) 3.0 Ashley # (Auto) 0.6 Eos # (Auto) 0.2 Baso # (Auto) 0.1 Absolute Nucleated RBC 0.00 Nucleated RBC % 0.0 PT 11.0 INR 1.0 Sodium Potassium Chloride Carbon Dioxide Anion Gap BUN Creatinine Estimated GFR (MDRD) Glucose Calcium Total Bilirubin AST ALT Alkaline Phosphatase Total Protein Albumin Globulin Albumin/Globulin Ratio Lipase Blood Type A POSITIVE Antibody Screen NEGATIVE 03/18/23 01:19 WBC RBC Hgb Hct MCV MCH MCHC RDW Plt Count MPV Neut # (Auto) Lymph # (Auto) Ashley # (Auto) Eos # (Auto) Baso # (Auto) Absolute Nucleated RBC Nucleated RBC % PT INR Sodium 138 Potassium 3.3 L Chloride 99 L Carbon Dioxide 24 Anion Gap 15.0 H BUN 19 Creatinine 0.8 Estimated GFR (MDRD) 74 L Glucose 217 H Calcium 9.6 Total Bilirubin 0.5 AST 23 ALT 23 Alkaline Phosphatase 62 Total Protein 7.7 Albumin 4.0 Globulin 3.7 Albumin/Globulin Ratio 1.1 Lipase 31 Blood Type Antibody Screen PD Medical Decision Making - ED course Complexity details: reviewed results, re-evaluated patient, considered differential, d/w patient ED course: The patient looked very well and she was able to provide me with pictures of her bloody output into the toilet. The patient did appear to have had red blood mixed completely with the water in the toilet when she had a bowel movement. The patient had a benign abdomen but I did feel that she should be worked up with laboratory studies including CBC and ER abdominal panel and should also have a CT scan of the abdomen and pelvis since she had had several episodes of bloody output. The patient initially been anxious upon arrival in the emergency department but now that she was not anxious, her heart rate was normal. She was not hypotensive. She had good coloring and did not appear pale. The silas thayer's CBC showed a normal hemoglobin. Her ER abdominal panel showed normal kidney function. The patient was sent for a CT scan of the abdomen and pelvis, which showed some diverticuli without diverticulitis. No other abnormalities were found. The patient had had 1 more episode of bloody diarrhea but was feeling well and stated she would like to go home. She stated that she would see how things went over the next couple of days and agreed to return should she begin to feel short of breath, fatigue, or lightheadedness. We have discussed the need for patient to follow-up with surgeons so that she can discuss having a colonoscopy done. Departure - Departure Disposition: 01 Home, Self Care Clinical Impression: Lower GI bleed Diarrhea Qualifiers: Diarrhea type: unspecified type Qualified Code(s): R19.7 - Diarrhea, u nspecified Condition: Stable Instructions: ED Hematochezia Stable Comments: Your labs and CT scan all look good tonight. It is not clear exactly what is causing your bleeding. You do have some small pouches protruding from your large intestine, which is a very common finding, and sometimes these can be a source of bleeding. Sometimes just the irritation from diarrhea can cause some bleeding into the stool. At this point in time, there is no evidence that you have lost a dangerous amount of blood. Your blood levels are normal and your vital signs have been stable here. It is important that you follow-up to get a colonoscopy scheduled. You may work on this through your primary doctor, but you may also call our surgery office to see if you can follow-up directly with them. Most likely, the bleeding will be temporary and self-limited; however, if it goes on for more than the next few days or you begin to notice fatigue or shortness of breath or lightheadedness, then please return to the emergency department. In the meantime, you should take a multivitamin with iron daily and drink lots of water.
[2023-03-18 03:50] VITALS: BP 141/72
--- NOTE | 2023-03-18 09:40 | CT Report ---
PROCEDURE: ABDOMEN/PELVIS W INDICATIONS: lower GI bleed/abd discomfort CONTRAST: Omni 300 100ml TECHNIQUE: After the administration of IV contrast, 5 mm thick sections acquired from the diaphragms to the symp hysis. 5 mm thick coronal and sagittal reformats were acquired. For radiation dose reduction, the f ollowing was used: automated exposure control, adjustment of mA and/or kV according to patient size. COMPARISON: CT abdomen pelvis without, 01/19/2017. CT of abdomen and pelvis with, 12/16/2015. FINDINGS: Image quality: Excellent. Lung bases and heart: Unremarkable. Liver: No solid mass. Normal size. Mild hepatic steatosis. Gallbladder and biliary tree: Spleen: No splenomegaly. Pancreas: No pancreatic ductal dilation. Adrenals: No adrenal nodule. Kidneys and ureters: No hydronephrosis. No renal cystic lesion which requires follow up. No solid mas s. Bowel and peritoneum: No bowel distension. No pathologic free fluid. There are scattered colonic dive rticula. No acute radiculitis. Lymph nodes: No central or retroperitoneal adenopathy. Vessels: No infrarenal aortic aneurysm. PELVIS Reproductive organs: Unremarkable. Bladder: No abnormal wall thickening, accounting for underdistension. Pelvic lymph nodes: No pelvic adenopathy by size criteria. Bones: No aggressive osseous abnormality. Other: No significant ventral or inguinal hernia. IMPRESSION: 1. No acute abnormality in abdomen or pelvis. 2. Diverticulosis without diverticulitis. No significant discrepancy with the preliminary interpretation. Reviewed by: Hardy Rai MD on 03/18/2023 9:39 AM PDT Approved by: Hardy Rai MD on 03/18/2023 9:39 AM PDT Station ID: [id number]
== END 2023-03-18 03:50 | disposition home or self-care (01) ==
LOC: ED 23:48
DX: K92.1 Melena (principal); R19.7 Diarrhea, unspecified; K57.30 Diverticulosis of large intestine without perforation or abscess without bleeding
CPT/HCPCS: 36415; 74177; 80053; 83690; 85025; 85610; 86850; 86900; 86901; 99283; 99284; Q9967

== ENCOUNTER 2023-03-31 13:14 | Outpatient (CLI) | payer MEDICAID ==
[2023-03-31 20:25] LABS: CHOL/HDL RATIO 7.3 (<4.4); CHOLESTEROL 382 mg/dL; HDL CHOLESTEROL 52 mg/dL; TRIGLYCERIDES 403 mg/dL
[2023-03-31 20:44] LABS: LDL CHOLESTEROL,DIRECT 212 mg/dL; LDLD/HDL RATIO 4.1 (<4.4)
[2023-03-31 21:34] LABS: ESTIMATED AVERAGE GLUCOSE 143 mg/dL (70-100); HEMOGLOBIN A1c% 6.6 % (4.27-6.07)
== END 2023-03-31 13:15 | disposition home or self-care (01) ==
LOC: LAB.S 13:14
PROVIDERS: ATTEND Nurse Practitioner
DX: E78.5 Hyperlipidemia, unspecified (principal); Z51.81 Encounter for therapeutic drug level monitoring; E11.9 Type 2 diabetes mellitus without complications
CPT/HCPCS: 36415; 80061; 83036; 83721

== ENCOUNTER 2023-04-11 07:26 | Day surgery (SDC) | payer MEDICAID ==
[2023-04-11] MEDS ORDERED: LACTATED RINGERS 1,000 ML IV ONE ×2 (07:32→08:52)
--- NOTE | 2023-04-11 08:06 | ANESTHESIA ---
Pre-Anesthesia VS, & Labs - Diagnosis rectal bleeding - Procedure colonoscopy Vital Signs: Temp Pulse Resp BP Pulse Ox O2 Flow Rate 97.6 C H 74 22 123/93 H 96 04/11/23 07:53 04/11/23 07:53 04/11/23 07:53 04/11/23 07:53 04/11/23 07:53 Height: 5 ft Weight (kg): 88 kg Body Mass Index: 37.8 BMI Classification: Obese - NPO >8 hours - Is Patient ?: Waiver signed - Lab Results Current Lab Results: Laboratory Tests 04/11/23 07:49: POC Whole Bld Glucose 163 H Home Medications and Allergies Home Medications: Ambulatory Orders Escitalopram [Lexapro] 30 mg PO DAILY 04/11/23 Losartan/Hydrochlorothiazide [Losartan-Hctz 100-12.5 mg Tab] 1 each PO DAILY 04/11/23 Lovastatin [Altoprev] 40 mg PO DAILY 04/11/23 Mirtazapine 15 mg PO QPM 04/11/23 metFORMIN [Glucophage] 500 mg PO BIDWM 04/11/23 Escitalopram [Lexapro] 30 mg PO DAILY 04/11/23 Losartan/Hydrochlorothiazide [Losartan-Hctz 100-12.5 mg Tab] 1 each PO DAILY 04/11/23 Lovastatin [Altoprev] 40 mg PO DAILY 04/11/23 Mirtazapine 15 mg PO QPM 04/11/23 metFORMIN [Glucophage] 500 mg PO BIDWM 04/11/23 Allergies/Adverse Reactions: Allergies Allergy/AdvReac Type Severity Reaction Status Date / Time No Known Drug Allergies Allergy Verified 04/11/23 07:45 Anes History & Medical History - Anesthetic History Anesthesia Complications: reports: No previous complications Family history of Anesthesia Complications: Denies Family history of Malignant Hyperthermia: Denies - Medical History Cardiovascular: reports: Hypertension, High cholesterol Pulmonary: reports: None Gastrointestinal: reports: GI bleed, Chronic diarrhea Urinary: reports: Incontinence, Kidney stones Musculoskeletal: reports: Osteoarthritis Endocrine/Autoimmune: reports: Type 2 diabetes Blood Disorders: reports: None Skin: reports: None Smoking Status: Never smoker Exam General: Alert, Oriented x3, Cooperative Dental: WNL Mouth Openin Fingerbreadth Neck Mobility: Normal Mallampati classification: II Thyromental Distance: 4-6 cm Respiratory: Lungs clear Cardiovascular: Regular rate Plan Anesthesia Type: General Consent for Procedure(s) Verified and Reviewed: Yes Code Status: Attempt Resuscitation ASA classification: 2-Mild systemic disease Is this case an emergency?: No
[2023-04-11] MEDS ORDERED: PROPOFOL 500 MG/50 ML 500 MG/50 ML VIAL ONE (08:10)
[2023-04-11] MEDS ORDERED: PROPOFOL 200 MG/20 ML VIAL IVP ONE (08:40)
[2023-04-11 09:17] VITALS: BP 111/65
--- NOTE | 2023-04-11 14:05 | ANESTHESIA POST OP EVALUATION ---
Anesthesia Post Eval - Post Anesthesia Eval Vitals: Last Vital Signs Temp 36.6 C 04/11/23 08:52 Pulse 70 04/11/23 09:15 Resp 14 04/11/23 09:15 BP 111/65 04/11/23 09:15 Pulse Ox 98 04/11/23 09:15 O2 Flow Rate CV Function Including HR & BP: Stable Pain Control: Satisfactory Nausea & Vomiting: Negative Mental Status: Baseline Respiratory Status: Airway Patent Hydration Status: Satisfactory Anesthesia Complications: None
== END 2023-04-11 07:27 | disposition home or self-care (01) ==
LOC: SDS 07:26
PROVIDERS: ATTEND Surgery
PROC: 0DBK8ZZ Excision of Ascending Colon, Via Natural or Artificial Opening Endoscopic (ICD-10-PCS; principal; 2023-04-11 08:30)
DX: K57.31 Diverticulosis of large intestine without perforation or abscess with bleeding (principal); D12.2 Benign neoplasm of ascending colon; E66.9 Obesity, unspecified; Z68.37 Body mass index [BMI] 37.0-37.9, adult; E11.9 Type 2 diabetes mellitus without complications; Z79.84 Long term (current) use of oral hypoglycemic drugs; Z80.0 Family history of malignant neoplasm of digestive organs
CPT/HCPCS: 45380; J7120